=== PATIENT | female | born 2000 | race Caucasian/White ===

== ENCOUNTER 2019-03-08 12:09 | Emergency (ER) | payer SELFPAY ==
[~2019-03-08] VITALS: Ht 154.9 cm; Wt 72.1 kg
[2019-03-08 12:13] VITALS: BP 106/70
--- NOTE | 2019-03-08 12:17 | NUR ---
18 YR OLD AAO X4 FEMALE BIB MOTHER W/ C/O ITCHY RASH GENERALIZED THROUGHOUT BODY X2 DAYS. PT REPORTS USING A NEW LOTION SATURDAY, AND THEN STARTING TO FEEL THE ITCHINESS AFTERWARDS. PT SPEAKING CLEARLY, DENIES SOB. HX: NONE RX: NONE
[2019-03-08] MEDS ORDERED: diphenhydrAMINE 12.5 MG/5 ML UDC PO ONE (12:30)
[2019-03-08 13:32] VITALS: BP 112/77
--- NOTE | 2019-03-08 13:32 | NUR ---
Patient discharged with v/s stable. Written and verbal after care instructions given and explained. Patient alert, oriented and verbalized understanding of instructions. Ambulatory with by parent. All questions addressed prior to discharge. ID band removed. Patient advised to follow up with PMD. Rx of Benadryl given. Patient and patients mother educated on indication of medication including possible reaction and side effects by Dr Sands. Opportunity to ask questions provided and answered.
== END 2019-03-08 13:32 | disposition home or self-care (01) ==
LOC: MED 12:09
DX: L50.0 Allergic urticaria (principal)
CPT/HCPCS: 99283; Q0163